=== PATIENT | female | born 1930 | race Caucasian/White ===

== ENCOUNTER → 2016-10-17 | Outpatient (CLI) | payer MEDICARE, OTHER ==
[~2016-10-17] MED LIST: ALDACTONE25 MG PO; ASPIRIN LO-DOSE81 MG PO; BOOST237 ML PO; CALCIUM CARBON500 MG PO; CALCIUM GLUC500 MG PO; COUMADIN **IA2.5 MG PO; DEMADEX10 MG PO; DULCOLAX10 MG R; K-TAB 10MEQ10 MEQ PO; LASIX40 MG PO; LEVOXYL50 MCG PO; LEXAPRO20 MG PO; MELATONIN10 M2 PO; MILK OF MA400 MG/5 M PO; NORCO 5-325 TA1 EACH PO; PROLIA60 MG/ML SUB-Q; TENORMIN25 MG PO; TYLENOL325 MG PO; VITAMIN D32000 UNI1 PO; ZESTRIL2.5 MG PO
== END | disposition disaster alternative care site (69) ==
LOC: GAMB 20:40
DX: S79.912A Unspecified injury of left hip, initial encounter (principal); M25.552 Pain in left hip; M79.605 Pain in left leg; Z79.899 Other long term (current) drug therapy; W19.XXXA Unspecified fall, initial encounter
CPT/HCPCS: A0425; A0427; J3010

== ENCOUNTER 2016-10-29 10:56 | Inpatient (IN) | payer MEDICARE, OTHER ==
[~2016-10-29] VITALS: Ht 152.4 cm; Wt 54.2 kg
--- NOTE | ~2016-10-29 | DS ---
PATIENT'S NAME: RUBAI CRUM [facility] AGE: 86 Y [address] ROOM: [address] [address] LOCATION: [facility] [place] ADMIT DATE: 10/29/2016 Discharge Summary DISCHARGE DATE: 10/30/2016 FAMILY PHYSICIAN: Tanisha Jhaveri MD ATTENDING PHYSICIAN: Noemi Billingsley PRINCIPAL DIAGNOSIS: Right leg deep venous thrombosis. SECONDARY DIAGNOSES: 1. Atrial fibrillation, not on any anticoagulation. 2. Acute kidney injury on chronic kidney disease. 3. Severe protein-calorie malnutrition. 4. Advanced dementia. 5. Failure to thrive. 6. Left leg pain secondary to recent fracture and repair. 7. Possible delirium on dementia. HOSPITAL COURSE: An 86-year-old lady with significant comorbidities and adult failure to thrive presented to the emergency department with an increasing left pain and restlessness, almost nonverbal secondary to her advanced dementia. On workup in the emergency department, it was revealed that she has acute right leg deep venous thrombosis as well as ANASTASIA on chronic kidney disease. I had a lengthy discussion with both daughters at that point about the patient's current condition as well as prognosis. We all agreed that her quality of life is not going to be very good if we go ahead and treat all her conditions. Family wanted to make the patient just comfortable at this point. We obtained Palliative/Hospice Care consultation who agreed with our assessment and plan. The patient was admitted for comfort care measures and was given pain medication, which dramatically improved her demeanor as well as her symptoms. She will be discharged home on hospice care to [place]. MEDICATIONS: Medications are going to be comfort care medications. CONDITION ON DISCHARGE: Guarded. MD BRIDGER EISENBERG/portillo /[id number] d: 10/31/16 0727 t: 11/02/16 1524, DISCHARGE SUMMARY
--- NOTE | ~2016-10-29 | ER ---
PATIENT'S NAME: RUBIA CRUM [facility] AGE: 86 Y [address] ROOM: [address] [place] [id number] [place] [facility] [place]: 10/29/2016 ER/Outpatient Report DISCHARGE DATE: FAMILY PHYSICIAN: Tanisha Jhaveri MD ATTENDING PHYSICIAN: URIEL SHAHID TIME OF PATIENT ARRIVAL: 1056 hours. TIME OF PATIENT EVALUATION: 1056 hours. CHIEF COMPLAINT: Left hip pain. HISTORY OF PRESENT ILLNESS: This is an 86-year-old female who presents to the ER via [facility]. The patient resides at [facility]. They state that she has had recent orthopedic injuries, the first one being this last fall where she fractured her left femur. She was hospitalized here at [facility], and her femur was repaired by Dr. Lujan. She was dismissed back to the custodial, and then she had another ground-level fall on October 17. Daughter states that they live close to [facility], so she had them bring her to [facility] for evaluation, and it was found that she fractured her left hip. She states that they wanted Dr. Lujan, but since he did not go there to that hospital, they had Dr. Jones evaluate the patient. She ultimately was worked up for her heart for surgery, and Dr. Jones did repair her left hip over there. The patient was sent back to the custodial, and ever since she has been back there, they have been having difficulty keeping her pain under control. They state that she was initially sent with tramadol, but that was not working, and now they have been giving her Brighton every 4 hours with no relief of her pain. They do not believe she has been running any fevers at home. They state she is not eating anything, and they state the only thing that is keeping her alive is drinking Ensure. They state she has severe Alzheimer and dementia, so she does not really communicate her pain very well, but does yell out in pain. It is unsure if she has had an increase in shortness of breath. She does have congestive heart failure, per family. They state that she has been seeing Dr. Villegas, but she was evaluated by a different arnp while she was over at [facility]. The patient's family state that she was also stopped on her warfarin while she was there due to her frequent falls. She was on the warfarin for her atrial fibrillation. ALLERGIES: NO KNOWN ALLERGIES. PATIENT'S NAME: RUBIA CRUM [facility] AGE: 86 Y [address] ROOM: [address] [place], [place] [address] [place] [facility] [place]: 10/29/2016 ER/Outpatient Report DISCHARGE DATE: FAMILY PHYSICIAN: Tanisha Jhaveri MD ATTENDING PHYSICIAN: URIEL SHAHID MEDICATIONS: Please see medication list, nurse's notes. PAST MEDICAL HISTORY: 1. Atrial fibrillation. 2. Alzheimer disease. 3. Essential primary hypertension. 4. She was on warfarin and is currently off that since her last hospital stay. 5. History of anemia. 6. Hypothyroidism. 7. Constipation. 8. Malnutrition. 9. History of hypokalemia. 10. History of depression. 11. Recent ground-level falls; one, fracturing her left femur, the next fall resulted in a fractured left hip. SOCIAL HISTORY: Lives at [facility]. Denies any smoking or drug use. REVIEW OF SYSTEMS: Reported by family. The patient was unable to tell me any history. It was negative with the exception of those discussed in the HPI. PHYSICAL EXAMINATION: VITAL SIGNS: Weight is unobtainable at this time, blood pressure is 91/64, pulse 89, respirations 20, temperature 97.9 degrees tympanically, and saturation is 96% on room air. [place] Coma Score is 15. GENERAL: The patient is alert, but disoriented to person, place, time, and situation. HEENT. Head is normocephalic. She does have moist mucous membranes. Eyes: Pupils are equal and reactive to light. NECK: Supple with no lymphadenopathy. LUNGS: Diminished bilaterally. No wheezes are heard. HEART: She has a regular rate and rhythm. ABDOMEN: Soft. It is nontender. She has good bowel sounds throughout. EXTREMITIES: She does have pain with range of motion of her left lower extremity. Her right lower extremity is swollen compared to her left. She has good pedal pulses to bilateral lower extremities. SKIN: She has incisions noted to her left hip and thigh area. There is no erythema. There is no active drainage. The clarence are still in place. NEUROLOGIC: Gait is not observed. LABORATORY DATA: PATIENT'S NAME: RUBIA CRUM [facility] AGE: 86 Y [address] ROOM: [address] [place], [place] [address] [place] [facility] [place] DATE: 10/29/2016 ER/Outpatient Report DISCHARGE DATE: FAMILY PHYSICIAN: Tanisha Jhaveri MD ATTENDING PHYSICIAN: URIEL SHAHID CBC: White count is 8.5, hemoglobin is 9.9, platelets 281, and ANC is 5.7. CMS: Potassium 5.5, glucose 112, BUN 34, and creatinine is 1.3. Albumin is 2.8 and A/G ratio is 0.7. AST is 78. GFR is 39. Otherwise, unremarkable. Magnesium is 2.2. CPK is 78, CK-MB is 2.0, and troponin-I is less than 0.040. The proBNP is 13,611.0. Clot was drawn. EKG shows right bundle-branch block. Venous Doppler was done of the bilateral lower extremities and does show DVT in her right lower extremity. X-rays of her left hip and pelvis were done, and no acute fracture was seen. IMPRESSION: 1. Deep venous thrombosis, right lower extremity. 2. Postop pain, left hip. 3. Congestive heart failure. 4. Dementia and Alzheimer's. ASSESSMENT AND PLAN: I did give the patient's daughters reassurance. We did give her 25 mcg of fentanyl IV for her pain here in the emergency room. The patient doctors with Dr. Jhaveri. Therefore, I called the Hospitalist Service and notified him of the patient. The patient's family wishes to have Dr. Lujan be their orthopedic doctor and also Dr. Villegas if she needs cardiology consult. We will be turning the care over to the Hospitalist Service at this time. The patient's family understands and agrees with care. CHU BARBOSA PA-C FOR DO PENELOPE BOOTH/portillo /[id number] d: 10/29/16 1814 t: 11/09/16 1926, OUTPATIENT REPORT
--- NOTE | ~2016-10-29 | ENPV ---
Vascular Lower Extremities DVT Study Procedure Demographics Patient Name RUBIA CRUM Date of Study 10/29/2016 Patient Number [id number] Gender Female Date of 1930 Age 86 Visit Number [id number] Height Accession Number [id number] Weight Room Number G3203 BSA BMI Referring Pranav WONG Interpreting Fredis Hernandez MD Physician Physician Physician Ordering Pranav St Advanced Developer Physician MARVIN Nurse Office Gus Metz RDCS, RVT Conclusions Summary There is moderate interstitial edema noted below the knee in the calf and ankle/foot bilaterally. Images 10-13 are annotated incorrectly, they show DVT in the right superficial circumflex iliac vein. Cannot rule out DVT in the right calf veins due to poor visualization. No evidence of deep vein thrombosis or superficial thrombophlebitis in the left lower extremity . Greater saphenous veins have been stripped bilaterally. Procedure Type of Study: Veins:Lower Extremities DVT Study, Venous Duplex Lower Extremity Bilateral. Indications for Study:Swelling of Limb. Appropriate Use Criteria:9 Allergies - No known allergies. Patient Status:STAT. Study Location:ER. Technical Quality:Limited visualization due to combative patient. - Preliminary reported to:Dr. Bonds. Velocities are measured in cm/s ; Diameters are measured in cm Right Lower Extremities DVT Study Measurements Right 2D and Doppler Measurements + + + + +---------+------+--------+ !Location !Visualized!Compressibility!Thrombosis!Signal !Reflux!Reflux ! ! ! ! ! ! ! !(sec) ! + + + + +---------+------+--------+ !GSV Thigh !Yes !Yes ! ! ! ! ! + + + + +---------+------+--------+ !Common !Yes !Yes !None !Pulsatile! ! ! !Femoral ! ! ! ! ! ! ! + + + + +---------+------+--------+ !Prox !Yes !Yes !None !Pulsatile! ! ! !Femoral ! ! ! ! ! ! ! + + + + +---------+------+--------+ !Mid !Yes !Yes !None !Pulsatile! ! ! !Femoral ! ! ! ! ! ! ! + + + + +---------+------+--------+ !Dist !Yes !Yes !None !Pulsatile! ! ! !Femoral ! ! ! ! ! ! ! + + + + +---------+------+--------+ !Popliteal !Yes !Yes !None !Pulsatile! ! ! + + + + +---------+------+--------+ !Gastroc !Yes !Yes !None ! ! ! ! + + + + +---------+------+--------+ !PTV !Yes !Yes !None ! ! ! ! + + + + +---------+------+--------+ !Peroneal !No ! ! ! ! ! ! + + + + +---------+------+--------+ Left Lower Extremities DVT Study Measurements Left 2D and Doppler Measurements + + + + +------+------+ + !Location !Visualized!Compressibility!Thrombosis!Signal!Reflux!Reflux ! ! ! ! ! ! ! !(sec) ! + + + + +------+------+ + !GSV Thigh !Yes ! ! ! ! ! ! + + + + +------+------+ + !Common !Yes !Yes !None !Phasic! ! ! !Femoral ! ! ! ! ! ! ! + + + + +------+------+ + !Prox !Yes !Yes !None !Phasic! ! ! !Femoral ! ! ! ! ! ! ! + + + + +------+------+ + !Mid Femoral!Yes !Yes !None !Phasic! ! ! + + + + +------+------+ + !Dist !Yes !Yes !None !Phasic! ! ! !Femoral ! ! ! ! ! ! ! + + + + +------+------+ + !Popliteal !Yes !Yes !None !Phasic! ! ! + + + + +------+------+ + !Gastroc !Yes !Yes !None ! ! ! ! + + + + +------+------+ + !PTV !Yes !Yes !None ! ! ! ! + + + + +------+------+ + !Peroneal !Yes !Yes !None ! ! ! ! + + + + +------+------+ + Signature dtt: PIERRE PRIETO: 10/29/16 1159 Physician Self Edit
--- NOTE | ~2016-10-29 | HP ---
PATIENT'S NAME: RUBIA CRUM [facility] AGE: 86 Y [address] ROOM: [address] [address] LOCATION: [facility] [place] ADMIT DATE: 10/29/2016 History & Physical DISCHARGE DATE: FAMILY PHYSICIAN: Tanisha Jhaveri MD ATTENDING PHYSICIAN: URIEL SHAHID DATE OF SERVICE: CHIEF COMPLAINT: Left leg pain. HISTORY OF PRESENT ILLNESS: An 86-year-old lady with a past medical history of atrial fibrillation; severe protein calorie malnutrition; advanced dementia; nonverbal; adult failure to thrive; recent left hip fracture, status post repair, who was brought into the emergency department because she was not acting the way she usually does and was really uncomfortable and cannot tell what is happening. Because of her dementia, she cannot really tell what is bothering her. All the history was obtained from the both daughters. Apparently, this patient was at [facility] for the left hip fracture which was repaired with a hardware placement. She was taken off Coumadin at that point and was never restarted because of her recurrent falls at the nursing facility at [place]. Daughters told me since surgery she has not been acting the way like she did. She is not eating much, she is not drinking any water. That is why they brought the patient to the emergency department today. REVIEW OF SYSTEMS: Cannot be obtained at this point. PAST MEDICAL HISTORY: Atrial fibrillation, was on chronic anticoagulation; severe protein calorie malnutrition; advanced dementia; adult failure to thrive; and left leg pain. MEDICATIONS: Please see MAR. ALLERGIES: NO KNOWN DRUG ALLERGIES. SOCIAL HISTORY: She was a never smoker. FAMILY HISTORY: Family history was unobtainable because of the patient's condition. PATIENT'S NAME: RUBIA CRUM [facility] AGE: 86 Y [address] ROOM: [address] [address] LOCATION: [facility] [place] ADMIT DATE: 10/29/2016 History & Physical DISCHARGE DATE: FAMILY PHYSICIAN: Tanisha Jhaveri MD ATTENDING PHYSICIAN: URIEL SHAHID PHYSICAL EXAMINATION: VITAL SIGNS: 132/67, 64, 18, afebrile. GENERAL: In moderate acute distress, cannot tell why. Not alert and oriented. Nonverbal. HEENT: Head: Atraumatic, normocephalic. Eyes: Nonicteric. No pallor. Oropharynx: Dry mucous membranes. CARDIOVASCULAR: S1 and S2. Systolic ejection murmur heard at the aortic region. ABDOMEN: Soft, nontender, and nondistended. Bowel sounds are present. EXTREMITIES: No clubbing, cyanosis, or edema. MUSCULOSKELETAL: Left hip staple medina noted, tender to touch. NEURO: Cannot be assessed at this point due to the patient's dementia. PSYCH: Cannot be assessed at this point. LAB WORK: In the emergency department, right Doppler scan was done, which did show a DVT. Rest of the labs were significant for anemia as well as ANASTASIA and hyperkalemia. ASSESSMENT/PLAN: 1. Right leg deep venous thrombosis. 2. Atrial fibrillation. 3. Acute kidney injury on chronic kidney disease, stage III. 4. Protein calorie malnutrition. 5. Advanced dementia. 6. Failure to thrive. 7. Left leg pain. 8. Possible delirium on dementia. PLAN: We had a lengthy discussion with the daughters at this point about the patient's current condition, the need for anticoagulation given her DVT. Given her multiple comorbidities, family wanted the patient to just to be comfortable. I brought up the idea of palliative and hospice care. Family wants her to be comfort care at this point, does not want any needle sticks and just for her to be comfortable. We would have Palliative and Hospice Care see this patient. We are going to admit this patient and start comfort care order set. We will have health and social care teacher consult and other resources to move her back to [facility] tomorrow or day after tomorrow if possible. The patient is DNR/DNI. URIEL SHAHID MD PATIENT'S NAME: RUBIA CRUM [facility] AGE: 86 Y [address] ROOM: [address] [address] LOCATION: [facility] [place] ADMIT DATE: 10/29/2016 History & Physical DISCHARGE DATE: FAMILY PHYSICIAN: Tanisha Jhaveri MD ATTENDING PHYSICIAN: URIEL SHAHID/portillo /[id number] D: [id number] T: [id number] HISTORY & PHYSICAL
--- NOTE | ~2016-10-29 | CON ---
PATIENT'S NAME: RUBIA CRUM [facility] AGE: 86 Y [address] ROOM: [place] [address] [place] [facility] [place] DATE: 10/29/2016 Consultation DISCHARGE DATE: 10/30/2016 FAMILY PHYSICIAN: Tanisha Jhaveri MD ATTENDING PHYSICIAN: Noemi Billingsley DATE OF CONSULTATION: 10/30/2016 REFERRING PHYSICIAN: Noemi Billingsley MD PALLIATIVE CARE CONSULT LOCATION: [place] [address]. REASON FOR CONSULTATION: This is a palliative care referral for goals of care and hospice discussion. HISTORY OF PRESENT ILLNESS: This 86-year-old frail female was admitted on 10/29/2016 with left leg pain. She has a past medical history of atrial fibrillation, severe protein-calorie malnutrition, advanced dementia, nonverbal, adult failure to thrive, and recent left hip fracture, status post repair. The patient had been declining over the last 5 months. She had been living with her daughter but had been declining. She had fallen about 5 months ago and fractured that same femur, and ever since, she continued to decline more nonverbal, not eating, and just not doing well per her daughter. After the second fall, she was at [facility] for repair of her left hip with hardware replacement, and she had recently went back to [facility]. She had been unable to take her pain medication due to difficulty swallowing and continued to get more agitated and having more pain and discomfort. PAST MEDICAL HISTORY: Atrial fibrillation, had been on chronic anticoagulation, but since prior surgery has not been on her Coumadin; severe protein-calorie malnutrition; advanced dementia; adult failure to thrive; left fractured hip with repair. ALLERGIES: NO KNOWN ALLERGIES. CURRENT MEDICATIONS: 1. Morphine. 2. Hyoscyamine sulfate 0.125 mg every 4 hours sublingual increased respiratory secretions. 3. Prochlorperazine or Compazine 25 mg every 8 hours per rectal and same PATIENT'S NAME: RUBIA CRUM [facility] AGE: 86 Y [address] ROOM: [place] [address] [place] [facility] [place] DATE: 10/29/2016 Consultation DISCHARGE DATE: 10/30/2016 FAMILY PHYSICIAN: Tanisha Jhaveri MD ATTENDING PHYSICIAN: Noemi Billingsley medication 10 mg p.o. every 6 hours. 4. Acetaminophen 650 mg every 4 hours p.o. and per rectum. 5. Morphine 1 to 2 mg IV or subcu every hour p.r.n. pain or dyspnea. 6. Morphine sulfate 5 mg every hour p.o. or sublingually. 7. Atropine 1 to 2 drops every 4 hours p.r.n. sublingually. 8. Lorazepam 0.5 mg every 2 hours p.r.n. agitation IV and 0.5 mg every 2 hours p.r.n. p.o. or sublingual p.r.n. agitation. 9. Haldol 1 mg every hour IV, subcu, and p.o. 10. Bisacodyl 10 mg every day p.r.n. rectally. SOCIAL HISTORY: The patient has 3 daughters. One lives in [place]. Other two daughters live close by. She had been living with Ruth Aranda, who is her medical power of commonwealth attorney. All daughters are medical power of attornies but Ruth is named first. Went to [facility] 5 months ago. FAMILY HISTORY: Mother of old age. Father of old age. Sister has heart problems. SURGICAL HISTORY: Left mastectomy, sigmoid colon resection in 03/2007, posterior cervical fusion, bilateral cataracts, thyroidectomy, decompressive laminectomy on L3 to S1 on 10/06/2011, vein stripping, and right hip surgery. SOCIAL HISTORY: She had been living at [facility] past 5 years. No alcohol or smoking history. Occupation, retired nurse. REVIEW OF SYSTEMS: A 10-point review of systems was done and is negative except as mentioned in the HPI and listed below. GI: Decreased appetite, only taking sips, having some difficulty swallowing. Last bowel movement unknown. Grimaces with pain in right lower and mid quadrant with palpation. PSYCH: History of dementia and nonverbal, especially since previous surgery 5 months ago. PHYSICAL EXAMINATION: GENERAL: This is an 86-year-old frail cachetic female. VITAL SIGNS: Temp 97.9 axillary, pulse 69, respirations 18, blood pressure 100/54. She is 5 feet 0 inch, weight is 119 pounds, with a BMI of 23.3. GENERAL: More awake since yesterday per daughter, does look around, no verbal. SKIN: Warm and dry. Color pale. HEENT: Head: Normocephalic and atraumatic. Sclerae are nonicteric. PATIENT'S NAME: RUBIA CRUM [facility] AGE: 86 Y [address] ROOM: [address] [address] [place] [facility] [place] DATE: 10/29/2016 Consultation DISCHARGE DATE: 10/30/2016 FAMILY PHYSICIAN: Tanisha Jhaveri MD ATTENDING PHYSICIAN: Noemi Billingsley Conjunctivae are pale pink. Mouth is pink and moist without exudate. NECK: No cervical adenopathy or thyromegaly. RESPIRATORY: Clear to auscultation bilaterally. Breath sounds even and regular throughout. CARDIAC: S1, S2 without murmurs or bruits. 1+ lower extremity edema. ABDOMEN: Soft, tender in right and mid quadrants, grimaces with pain with palpation. NEURO: Nonverbal. Does seem to recognize daughter. Does not follow commands. MUSCULOSKELETAL: Appropriate range of motions in upper extremities. EXTREMITIES: No cyanosis or deformities. SKIN: Dressing dry and intact on the left hip and mid left femur. Palliative performance scale is 10%, totally bed-bound, unable do any activity, total care, mouth care only, drowsy, with periods of confusion. IMPRESSION: 1. Left hip pain. 2. Lack of appetite. 3. Anorexia. 4. Restlessness. 5. Confusion/dementia/delirium. PLAN: 1. Met with the patient and daughter. The patient is nonverbal. Discussed goals of care with daughter, medical power of commonwealth attorney. Daughter states that she does not want to have put her mother to anymore testing and just wants to keep her mom comfortable. She does not feel that her mom is comfortable this morning, was grimacing with pain. 2. Discussed goals of care. Comfort cares, better pain control, [facility] back to [facility] with hospice, and transfer with ambulance due to increased pain which would be uncomfortable for the patient with hip fracture. 2. Code status and advanced directive. The patient is a do not resuscitate/do not intubate. A copy of advance directive is on the chart, naming daughters as medical power of commonwealth attorney. RECOMMENDATIONS: 1. Pain. Recommend scheduling Roxanol 5 mg p.o. sublingual every 4 hours. Hold if sleepy. Continue to keep p.r.n. dose of 5 mg every 4 hours p.r.n. pain or dyspnea. 2. Anxiety or restlessness. Ativan was given one dose through the night when the patient got agitated. We would continue with a p.r.n. dose for increased agitation. 3. Delirium. Haldol p.r.n. is ordered. 4. We will fax information to [facility] to evaluate when they can admit the patient to hospice in the prison. We will continue to PATIENT'S NAME: RUBIA CRUM [facility] AGE: 86 Y [address] ROOM: [place] [address] [place] [facility] [place] DATE: 10/29/2016 Consultation DISCHARGE DATE: 10/30/2016 FAMILY PHYSICIAN: Tanisha Jhaveri MD ATTENDING PHYSICIAN: Noemi Billingsley support the patient and daughter spiritual needs. 5. Spiritual needs. The patient has enjoyed sister Ruth at the prison. Asked daughter about [facility], and she stated that it could be arranged once the patient is brought back to the prison. Answered all questions and concerns. Total time was 60 minutes with 55 minutes for counseling and coordination of care. Thank you for allowing me to assist with this patient. PER CASEY NP FOR MD ALEXIA DSOS/portillo /[id number] d: 10/30/16 2310 t: 11/01/16 1044, CONSULTATION REPORT
[~2016-10-29 10:56] MED LIST changes: -ASPIRIN LO-DOSE81 MG PO; -CALCIUM CARBON500 MG PO; -CALCIUM GLUC500 MG PO; -DULCOLAX10 MG R; -LEXAPRO20 MG PO; -MELATONIN10 M2 PO; -MILK OF MA400 MG/5 M PO; -NORCO 5-325 TA1 EACH PO; -PROLIA60 MG/ML SUB-Q; -VITAMIN D32000 UNI1 PO
[2016-10-29 11:16] LABS: BASOPHIL % 0.5 %; EOSINOPHIL # 0.1 K/uL (0.0-0.5); EOSINOPHIL % 1.5 %; HEMATOCRIT 32.2 % (30.0-46.0); HEMOGLOBIN 9.9 g/dL (10.0-15.0); IMMATURE GRANULOCYTE # 0.1 K/uL (0.0-0.3); IMMATURE GRANULOCYTE % 1.1 %; LYMPHOCYTE # 1.7 K/uL (0.8-4.0); LYMPHOCYTE % 19.8 %; MCH 31.9 pg (27.0-34.0); MCHC 30.7 gm/dL (32.0-36.5); MCV 103.9 fl (83.0-98.0); MONOCYTE # 0.9 K/uL (0.0-1.0); MONOCYTE % 10.7 %; MPV 10.3 fl (9.4-12.4); NEUTROPHIL # (ANC) 5.7 K/uL (1.8-7.8); NEUTROPHIL % 66.4 %; NRBC % 9.6 /100WBC (0-0.00); PLATELET COUNT 281 K/uL (150-450); RDW-CV 19.9 % (11.9-14.6); WBC 8.5 K/uL (4.0-11.0)
[2016-10-29 11:35] LABS: ALBUMIN 2.8 gm/dL (3.5-5.0); ANION GAP 15.5 (10.0-19.0); CALCIUM 9.2 mg/dL (8.5-10.5); CREATININE 1.3 mg/dL (0.5-1.1); POTASSIUM 5.5 mMol/L (3.7-5.1); TOTAL BILIRUBIN 1.5 mg/dL (0.0-1.5); TOTAL PROTEIN 6.9 g/dL (6.0-8.4)
[2016-10-29 11:48] LABS: CPK 78 IU/L (21-215); MAGNESIUM 2.2 mg/dL (1.3-2.6)
[2016-10-29] MEDS ORDERED: ASPIRIN LO-DOSE81 MG PO (14:56)
[2016-10-29] MEDS ORDERED: LEXAPRO20 MG PO (14:57)
[2016-10-29] MEDS ORDERED: MELATONIN10 M2 PO (14:57)
[2016-10-29] MEDS ORDERED: PROLIA60 MG/ML SUB-Q (14:57)
[2016-10-29] MEDS ORDERED: VITAMIN D32000 UNI1 PO (14:58)
[2016-10-29] MEDS ORDERED: CALCIUM CARBON500 MG PO (14:59)
[2016-10-29] MEDS ORDERED: DULCOLAX10 MG R (15:00)
[2016-10-29] MEDS ORDERED: CALCIUM GLUC500 MG PO (15:00)
[2016-10-29] MEDS ORDERED: MILK OF MA400 MG/5 M PO (15:00)
[2016-10-29] MEDS ORDERED: NORCO 5-325 TA1 EACH PO (15:01)
--- NOTE | 2016-10-29 17:47 | NUR ---
Nonverbal, Alzheimers patient. Fell last week and Fx'd L)hip; Dr Lujan repaired. Has been non-ambulatory for over 5months since R)femur Fx. IV s/l'd to LW. On Comfort Cares. On 2liters O2 for comfort. No PRN meds given since admitted. DNR. Limb Alert to L) arm. NKA.
--- NOTE | 2016-10-30 02:00 | NUR ---
Significant Event: Non verbal. Unable to determine orientation. Does have hx of progressed dementia. Comfort cares. Repo frequently. Incontinent of urine. Does occasional moan and grimace. Morphine IV for pain. Anxous at times. Ativan SL given as well. Miguel intact to L) hip. Does have 2-3+ edema to RLE from DVT. Daughters at bedside during HS cares. They would like a call with any condition change. Follow up:
--- NOTE | 2016-10-30 10:30 | NUR ---
Assisting co-worker Shonda with CM. Spoke to Dr. Jose Cruz Orellana on his way to complete orders to return to [facility]. 1040 Called EMS, nurse Asha provided vitals. Made arranagements for 1130 dismissal. Called [facility] about dismissal time. Provided nurse with phone number for nurse to nurse. 1125 Faxed orders.
--- NOTE | 2016-10-30 11:35 | NUR ---
pt alert, oriented to person. last vitals 116/66, 84HR, 20RR, 98.6, 92% RA. MS gave at 1130 before transfer. IV removed from L wrist. Family at bedside. Pt had bag bath this am. Incontinent of urine. Argonne intact to L hip. Continues on comfort cares
== END 2016-10-30 11:40 | DRG 299 ==
LOC: GMED 10:56 → GMSU 13:25
PROVIDERS: Physician Assistant Medical; ADMIT Internal Medicine
DX: I82.401 Acute embolism and thrombosis of unspecified deep veins of right lower extremity (principal); E43 Unspecified severe protein-calorie malnutrition; N17.9 Acute kidney failure, unspecified; I48.2 Chronic atrial fibrillation; F03.90 Unspecified dementia, unspecified severity, without behavioral disturbance, psychotic disturbance, mood disturbance, and anxiety; E87.5 Hyperkalemia; I50.9 Heart failure, unspecified; I12.9 Hypertensive chronic kidney disease with stage 1 through stage 4 chronic kidney disease, or unspecified chronic kidney disease; N18.3 Chronic kidney disease, stage 3 (moderate); E03.9 Hypothyroidism, unspecified; R62.7 Adult failure to thrive; Z87.81 Personal history of (healed) traumatic fracture; Z51.5 Encounter for palliative care; D64.9 Anemia, unspecified; Z66 Do not resuscitate; K59.00 Constipation, unspecified; E87.6 Hypokalemia; G89.18 Other acute postprocedural pain
CPT/HCPCS: J2270

== ENCOUNTER → 2016-10-29 | Outpatient (CLI) | payer MEDICARE, OTHER | END | disposition disaster alternative care site (69) | LOC: GAMB 10:35 | DX: M25.552 Pain in left hip (principal); S72.001D Fracture of unspecified part of neck of right femur, subsequent encounter for closed fracture with routine healing; Z79.891 Long term (current) use of opiate analgesic; Z79.899 Other long term (current) drug therapy; X58.XXXD Exposure to other specified factors, subsequent encounter | CPT/HCPCS: A0422; A0425; A0427; J2270; J3010 ==

== ENCOUNTER → 2016-10-30 | Outpatient (CLI) | payer MEDICARE, OTHER ==
[~2016-10-30] MED LIST changes: +ASPIRIN LO-DOSE81 MG PO; +CALCIUM CARBON500 MG PO; +CALCIUM GLUC500 MG PO; +DULCOLAX10 MG R; +LEXAPRO20 MG PO; +MELATONIN10 M2 PO; +MILK OF MA400 MG/5 M PO; +NORCO 5-325 TA1 EACH PO; +PROLIA60 MG/ML SUB-Q; +VITAMIN D32000 UNI1 PO
== END | disposition disaster alternative care site (69) ==
LOC: GAMB 11:29
DX: R56.9 Unspecified convulsions (principal)
CPT/HCPCS: A0425; A0428